=== PATIENT | female | born 1955 | race Caucasian/White ===

== ENCOUNTER → 2017-11-24 | Outpatient (CLI) | payer BC ==
[~2017-11-24] MED LIST: AMOXICILLIN 8751 TAB PO; ASPIRIN E.C. 8181 MG PO; CALCIUM + D 6001 TAB PO; CALCIUM 600MG+D1 TAB PO; CLIMARA 0.1 PATCH.WK TD; CRESTOR 10MG10 MG PO; FISH OIL1000 MG PO; FML 5 ML5 ML OP; LEVOXYL0.125 MG PO; MASON NATURAL1200 MG PO; MULTI VITAMINS1 TAB PO; SYNTHROID0.1 MG PO; VIVELLE-DO0.075 MG/2 TD; WELLBUTRIN XL150 MG PO; WELLBUTRIN100 MG PO
== END ==
LOC: MC.RAD 07:55
DX: Z12.31 Encounter for screening mammogram for malignant neoplasm of breast (principal); N63.20 Unspecified lump in the left breast, unspecified quadrant

== ENCOUNTER → 2017-11-27 | Outpatient (CLI) | payer BC | LOC: MC.RAD 12:54 | DX: N60.02 Solitary cyst of left breast (principal) ==

== ENCOUNTER 2018-12-10 08:03 | Outpatient (CLI) | payer BC ==
[~2018-12-10] VITALS: Ht 162.6 cm; Wt 68.0 kg
[~2018-12-10 08:03] MED LIST changes: -CRESTOR 10MG10 MG PO; +LIPITOR 10MG10 MG PO
[2018-12-10] MEDS ORDERED: THE MEDICINE S200 M2 PO (09:26)
[2018-12-10] MEDS ORDERED: ASPIRIN E.C. 8181 MG PO (09:27)
[2018-12-10] MEDS ORDERED: AMOXICILLIN 8751 TAB PO ×2 (09:28→10:28)
[2018-12-10 09:41] VITALS: BP 107/76; PULSE 70; TEMP 97.6
[2018-12-10 10:30] VITALS: BP 147/88; PULSE 79
--- NOTE | 2018-12-10 10:30 | NUR ---
Discharge instructions given to pt.Pt verbalizes understanding.Pt escortedo ut by this nurse.
== END 2018-12-10 10:40 | disposition home or self-care (01) ==
LOC: COL.CAR 08:03
DX: I48.0 Paroxysmal atrial fibrillation (principal); E78.2 Mixed hyperlipidemia; I34.9 Nonrheumatic mitral valve disorder, unspecified; Z79.82 Long term (current) use of aspirin; Z80.3 Family history of malignant neoplasm of breast; Z80.0 Family history of malignant neoplasm of digestive organs; Z82.49 Family history of ischemic heart disease and other diseases of the circulatory system; Z82.3 Family history of stroke; Z80.1 Family history of malignant neoplasm of trachea, bronchus and lung

== ENCOUNTER → 2019-03-11 | Outpatient (CLI) | payer BC ==
[~2019-03-11] MED LIST changes: +THE MEDICINE S200 M2 PO
== END ==
LOC: MC.RAD 08:45
DX: Z12.31 Encounter for screening mammogram for malignant neoplasm of breast (principal); Z95.828 Presence of other vascular implants and grafts

== ENCOUNTER → 2020-05-25 | Outpatient (CLI) | payer BC | LOC: MC.RAD 08:45 | DX: Z12.31 Encounter for screening mammogram for malignant neoplasm of breast (principal) ==

== ENCOUNTER 2020-10-02 09:00 | Outpatient (RCR) | payer BC ==
[2020-11-24] MEDS ORDERED: SYNTHROID0.125 MG/T PO (07:31)
[2020-11-24] MEDS ORDERED: MULTAQ400 MG PO (07:32)
[2020-11-24] MEDS ORDERED: ELIQUIS 5MG PO (07:32)
== END 2020-11-20 | disposition home or self-care (01) ==
LOC: MKS.ESL.PT
DX: M54.41 Lumbago with sciatica, right side (principal)

== ENCOUNTER → 2021-06-07 | Outpatient (CLI) | payer MEDICARE ==
[~2021-06-07] MED LIST changes: +ELIQUIS 5MG PO; +MULTAQ400 MG PO; +SYNTHROID0.125 MG/T PO
== END ==
LOC: MC.RAD 09:12
DX: Z12.31 Encounter for screening mammogram for malignant neoplasm of breast (principal)

== ENCOUNTER → 2022-06-11 | Outpatient (CLI) | payer MEDICARE ==
[~2022-06-11] MED LIST changes: +MELATONIN5 M1 SL
== END ==
LOC: MC.RAD 10:35
DX: Z12.31 Encounter for screening mammogram for malignant neoplasm of breast (principal); N63.10 Unspecified lump in the right breast, unspecified quadrant

== ENCOUNTER → 2022-06-13 | Outpatient (CLI) | payer MEDICARE | LOC: MC.RAD 09:09 | DX: N60.11 Diffuse cystic mastopathy of right breast (principal) ==

== ENCOUNTER 2022-06-28 08:51 | Day surgery (SDC) | payer MEDICARE ==
[~2022-06-28] VITALS: Ht 162.6 cm; Wt 68.0 kg
[~2022-06-28 08:51] MED LIST changes: -MELATONIN5 M1 SL
[2022-06-28 09:48] VITALS: BP 122/65; PULSE 68; TEMP 97.6
[2022-06-28] MEDS ORDERED: MELATONIN5 M1 SL (09:52)
[2022-06-28 14:10] VITALS: BP 127/60; PULSE 68; TEMP 97.2
--- NOTE | 2022-06-28 14:10 | NUR ---
The patient arrived back to [facility] from the recovery room at this time. The patient is alert and oriented and denies any pain or nausea at this time. The patient's acewrap dressing to her left knee appears clean, dry and intact. The patient's left leg is elevated with foot of the bed and has ice in place to the incision site. The patient denies any pain or nausea at this time and agrees to try some water at this time. Post operative vital signs were started. Call light is within reach. Denies any further needs.
[2022-06-28 14:25] VITALS: BP 124/58; PULSE 64
--- NOTE | 2022-06-28 14:25 | NUR ---
The patient has tolerated the water well and now requests to try some coffee and saltine crackers. Vital signs appear stable. Call light remains within reach.
[2022-06-28 14:40] VITALS: BP 130/61; PULSE 66
--- NOTE | 2022-06-28 14:40 | NUR ---
The patient has finished her food and drink and denies wanting anything further at this time.
[2022-06-28 14:55] VITALS: BP 125/56; PULSE 68
--- NOTE | 2022-06-28 14:55 | NUR ---
The patient ambulated to the bathroom with the use of her crutches using a steady gait and appeared to tolerate the activity well. The patient voided without difficulty and voices a desire to be discharged home.
--- NOTE | 2022-06-28 15:10 | NUR ---
Discharge instructions were reviewed with the patient at this time. The nurse called Dr. Adair to clarify when the patient could resume her eliquis and she stated she restart it tomorrow (06/29). The patient's IV to her right wrist was removed and a pressure dressing was applied to the site. The nurse instructed the patient to get dressed and call her daughter to pick her up.
[2022-06-28 15:16] VITALS: BP 127/60; PULSE 68; TEMP 98.2
--- NOTE | 2022-06-28 15:44 | NUR ---
The patient was escorted out via wheelchair to a private vehicle by DANI Rodriguez. The patient's belongings and discharge paperwork were sent with her. The patient's daughter is present to drive her home.
== END 2022-06-28 15:44 | disposition home or self-care (01) ==
LOC: SDCO 08:51
DX: M23.204 Derangement of unspecified medial meniscus due to old tear or injury, left knee (principal); M94.8X6 Other specified disorders of cartilage, lower leg; M94.262 Chondromalacia, left knee; Z98.890 Other specified postprocedural states; Z79.899 Other long term (current) drug therapy; Z79.01 Long term (current) use of anticoagulants
CPT/HCPCS: J0690; J1100; J1885; J2405; J2704; J3010; J7120

== ENCOUNTER → 2023-10-15 | Outpatient (CLI) | payer MEDICARE ==
[~2023-10-15] MED LIST changes: +MELATONIN5 M1 SL
== END ==
LOC: COL.RAD 09:47
DX: M47.812 Spondylosis without myelopathy or radiculopathy, cervical region (principal); L29.9 Pruritus, unspecified

== ENCOUNTER → 2024-07-21 | Outpatient (CLI) | payer MEDICARE | LOC: MC.RAD 10:21 | DX: Z12.31 Encounter for screening mammogram for malignant neoplasm of breast (principal) ==